=== PATIENT | female | born 1990 | race African-American/Black ===

== ENCOUNTER 2018-01-12 13:29 | Emergency (ER) | payer MEDICAID ==
[~2018-01-12] VITALS: Ht 165.1 cm; Wt 75.0 kg
[2018-01-12 15:19] LABS: BASOPHILS % 1.1 % (0.0-2.0); EOSINOPHILS % 11.1 % (0.0-5.0); HEMATOCRIT. 37.3 % (36.0-48.0); HEMOGLOBIN. 12.5 g/dL (12.0-16.0); LYMPHOCYTES % 35.9 % (20.0-50.0); MEAN CORPUSCULAR HEMOGLOBIN 28.2 pg (28.0-32.0); MEAN CORPUSCULAR VOLUME 83.9 fL (81.0-99.0); MEAN PLATELET VOLUME 8.6 fl (7.4-10.4); MONOCYTES % 8.2 % (2.0-8.0); NEUTROPHILS % 43.7 % (40.0-76.0); PLATELET 306 x1000/uL (130-400); RED BLOOD CELL COUNT 4.44 mill/uL (4.2-5.4); RED CELL DISTRIBUTION WIDTH 18.3 % (11.6-14.6)
[2018-01-12 15:21] LABS: CHLORIDE 106 mEq/L (98-107)
[2018-01-12 15:25] LABS: PROTHROMBIN TIME 10.6 sec (9.4-11.6)
[2018-01-12 18:03] LABS: T4 FREE 0.86 ng/dL (0.76-1.46)
[2018-01-12 18:48] VITALS: BP 117/69
== END 2018-01-12 18:50 | disposition home or self-care (01) ==
LOC: ER 14:07
DX: Z30.430 Encounter for insertion of intrauterine contraceptive device (principal); N93.9 Abnormal uterine and vaginal bleeding, unspecified; R55 Syncope and collapse; E03.9 Hypothyroidism, unspecified; R10.2 Pelvic and perineal pain
CPT/HCPCS: 36415; 76830; 76856; 80053; 83690; 84439; 84443; 85025; 85610; 99285